=== PATIENT | male | born 1980 | race Caucasian/White ===

== ENCOUNTER 2022-12-07 19:03 | Observation (INO) | payer SELFPAY ==
[2022-12-07 19:04] VITALS: BP 130/98; PULSE 95; RESP 15; TEMP 36.7; O2SAT 99; BMI 33.0
--- NOTE | 2022-12-07 19:10 | XRR_ITS ---
PROCEDURE INFORMATION: Exam: XR Chest Exam date and time: 12/07/2022 7:29 PM Age: 42 years old Clinical indication: Pain; Chest pressure and right-sided; Additional info: Cp TECHNIQUE: Imaging protocol: Radiologic exam of the chest. Views: 1 view. COMPARISON: No relevant prior studies available. FINDINGS: Lungs: Lungs are clear bilaterally. Pleural spaces: No pleural effusion. No pneumothorax. Heart/Mediastinum: The cardiac silhouette and mediastinal contours are unremarkable. Bones/joints: Unremarkable for age. XR/XR chest 1V portable [id number] IMPRESSION: Negative chest radiograph.
--- NOTE | 2022-12-07 19:12 | W.ED.ABDPA2 ---
HPI - Abdominal Pain General: Chief Complaint: Abdominal Pain Stated Complaint: ABD PAIN Time Seen by Provider: 12/07/22 19:07 Source: patient and EMS Mode of arrival: EMS Limitations: no limitations History of Present Illness: 42-year-old male states has been having right upper quadrant pain today. He states that sharp pain that radiates to his back and into his chest. He denies any nausea or vomiting denies any fevers he is currently in pain he states a 5 out of 10. He denies any worsening or improving factors. He does still have his gallbladder. Associated Symptoms: Denies chills, dysuria and fever(s) Review of Systems Const: Denies: fever(s), chills, body aches or change in appetite Eyes: Denies: blurry vision or eye discomfort ENMT: Denies: throat pain or dental pain Card: Denies: chest pain Resp: Denies: dyspnea GI: Reports: abdominal pain : Denies: dysuria Musc: Denies: neck pain or back pain Skin/Breast: Denies: rash Neuro: Denies: headache(s) Psych: Denies: depression Roland/Lymph: Denies: easy bruising All/Imm: Denies: urticaria PFSH ED PFSH: Medical History (Updated 12/07/22 @ 21:55 by Zulema Harris MD) No pertinent past medical history Social History (Updated 12/07/22 @ 19:14 by Zulema Harris MD) Substance/Drug Use: unknown Physical Exam Const: COMMON NORMALS: no acute distress, patient oriented x3 and healthy appearing HENMT: COMMON NORMALS: normocephalic and atraumatic HEAD & SCALP: normocephalic and atraumatic Eye: COMMON NORMALS: Equal, round and reactive pupils present and EOMs intact bilaterally PUPIL: Yes Equal, round and reactive pupils present Neck/C-Spine: COMMON NORMALS: full ROM and supple Chest: COMMONS NORMALS: normal inspection of the chest and normal palpation of entire chest wall Resp: COMMON NORMALS: normal respiratory effort, No retractions, No use of accessory muscles and clear to auscultation bilaterally AUSCULTATION: clear to auscultation bilaterally Cardio: COMMON NORMALS: regular rate, regular rhythm and No murmurs present (Cardio) RATE: regular rate RHYTHM: regular rhythm GI: COMMON NORMALS: Normal to inspection, nondistended, normoactive bowel sounds present, Soft to palpation and no masses PALPATION: Yes Soft to palpation and Yes Tenderness to palpation present (GI) Details: RUQ Extremity: COMMON NORMALS: normal to inspection and full ROM Neuro: COMMON NORMALS: patient oriented x3, moves all extremities and no focal motor deficits Psych: COMMON NORMALS: mental status grossly normal, Normal thought process present and cooperative THOUGHT PROCESS: Normal thought process present Skin: COMMON NORMALS: no rashes or lesions noted and no wounds GENERAL SKIN EXAM: no rashes or lesions noted Course Vital Signs: Vital signs: Vital Signs Temperature 98.1 F 12/07/22 19:04 Pulse Rate 87 12/07/22 21:05 Respiratory Rate 18 12/07/22 19:28 Blood Pressure 123/67 12/07/22 21:05 Pulse Oximetry 100 12/07/22 21:05 Oxygen Delivery Me thod 12/07/22 21:05 MDM - Abdominal Pain Medical Decision Making Patient presents here with right upper quadrant abdominal pain ultrasound is consistent with cholecystitis he has a mildly elevated white count I did speak to surgeon will admit at this time for his cholecystitis. Lab Data 12/07/22 19:05 12/07/22 19:05 Labs/Radiology: Radiology Impressions Chest X-Ray 12/07/22 19:10 IMPRESSION: Negative chest radiograph. Gallbladder Ultrasound 12/07/22 20:36 IMPRESSION: 1. No gallstones or intraluminal gallbladder sludge. There are findings suspicious for cholecystitis on ultrasound. 2. Pancreas not visualized due to overlying bowel gas. 3. Incidental/nonacute findings are listed in the report. Laboratory Results WBC 12.8 10^3/uL (4.0-10.0) H 12/07/22 19:05 RBC 4.70 10^6/uL (4.1-5.3) 12/07/22 19:05 Hgb 13.6 g/dL (11.7-16.6) 12/07/22 19:05 Hct 42.5 % (42.0-52.0) 12/07/22 19:05 MCV 90.4 fl (80-94) 12/07/22 19:05 MCH 28.9 pg (28.0-34.0) 12/07/22 19:05 MCHC 32.0 g/dL (30.0-36.0) 12/07/22 19:05 RDW 13.2 % (12.1-15.1) 12/07/22 19:05 Plt Count 387 10^3/cmm (130-400) 12/07/22 19:05 MPV 9.4 fL (7.4-10.4) 12/07/22 19:05 Neut % (Auto) 76.1 % 12/07/22 19:05 Lymph % (Auto) 13.9 % 12/07/22 19:05 Mayes % (Auto) 6.3 % 12/07/22 19:05 Eos % (Auto) 3.1 % 12/07/22 19:05 Baso % (Auto) 0.4 % 12/07/22 19:05 Neut # (Auto) 9.71 10^3/uL (1.8-7.7) H 12/07/22 19:05 Lymph # (Auto) 1.8 10^3/uL (0.8-4.8) 12/07/22 19:05 Mayes # (Auto) 0.8 10^3/uL (0.2-0.9) 12/07/22 19:05 Eos # (Auto) 0.4 10^3/uL (0.0-0.8) 12/07/22 19:05 Baso # (Auto) 0.1 10^3/uL (0.0-0.1) 12/07/22 19:05 Nucleated RBC % (auto) 0 % 12/07/22 19:05 Nucleated RBCs # 0.0 /100WBC 12/07/22 19:05 Sodium 139 mmol/L (136-145) 12/07/22 19:05 Potassium 4.4 mmol/L (3.5-5.1) 12/07/22 19:05 Chloride 103 mmol/L (98-107) 12/07/22 19:05 Carbon Dioxide 25 mmol/L (22-29) 12/07/22 19:05 Anion Gap 15.4 (5-19) 12/07/22 19:05 BUN 10 mg/dL (6-20) 12/07/22 19:05 Creatinine 0.8 mg/dL (0.7-1.2) 12/07/22 19:05 GFR Calculation 105.0 mL/min (90-130) 12/07/22 19:05 Glucose 94 mg/dL (65-115) 12/07/22 19:05 Calculated Osmolality 287 mOsm/kg (285-295) 12/07/22 19:05 Calcium 9.5 mg/dL (8.5-10.5) 12/07/22 19:05 Total Bilirubin 0.2 mg/dL (0.15-1.2) 12/07/22 19:05 AST 13 U/L (0-40) 12/07/22 19:05 ALT 13 U/L (0-41) 12/07/22 19:05 Alkaline Phosphatase 87 U/L (40-130) 12/07/22 19:05 Troponin T Baseline 6 ng/L (0-15) 12/07/22 19:05 Troponin T 120 Minute 6.00 ng/L (0-15) 12/07/22 20:45 Total Protein 6.5 g/dL (6.6-8.7) L 12/07/22 19:05 Albumin 3.8 g/dL (3.5-5.2) 12/07/22 19:05 Globulin 2.7 g/dL (1.3-4.6) 12/07/22 19:05 Lipase 28 U/L (13-60) 12/07/22 19:05 EKG Data EKG 1: I personally reviewed and interpreted this EKG as follows: EKG interpretation date: 12/07/22 EKG interpretation time: 19:23 Interpretation: nsr hr [address] or t wave abnormalities qrs 85 qtc 395 Discharge Plan Discharge Patient Disposition: Admitted As Inpatient Clinical Impression: Acute cholecystitis Referrals: Sheri Ramirez FNP [Referring] - Coding Level of Care Code ED Certified Hearing Instrument Dispenser for Chg Opal
[2022-12-07 19:22] LABS: Basophils # 0.1 10^3/uL (0.0-0.1); Basophils % 0.4 %; Eosinophils # 0.4 10^3/uL (0.0-0.8); Eosinophils % 3.1 %; Hematocrit 42.5 % (42.0-52.0); Hemoglobin 13.6 g/dL (11.7-16.6); Lymphocytes # 1.8 10^3/uL (0.8-4.8); Lymphocytes % 13.9 %; Mean Corpuscular Hemoglobin 28.9 pg (28.0-34.0); Mean Corpuscular Volume 90.4 fl (80-94); Mean Platelet Volume 9.4 fL (7.4-10.4); Monocytes # 0.8 10^3/uL (0.2-0.9); Monocytes % 6.3 %; Neutrophils # 9.71 10^3/uL (1.8-7.7); Neutrophils % 76.1 %; Nucleated Red Blood Cells % 0 %; Platelet Count 387 10^3/cmm (130-400); Red Cell Distribution Width 13.2 % (12.1-15.1); White Blood Count 12.8 10^3/uL (4.0-10.0)
--- NOTE | 2022-12-07 19:23 | ECG_ITS ---
[facility] Test Date: 2022-12-07 Pat Name: Shayan Castro Department: Room: Gender: Male Manager Of Software: : 1980 Requested By: Zulema Harris Order Number: [id number] Jim MD: Philip Crespo M.D. Measurements Intervals [place] Rate: 90 P: 54 [place]: 120 QRS: 73 QRSD: 85 T: 72 QT: 347 QTc: 425 Interpretive Statements SINUS RHYTHM No previous ECG available for comparison Electronically Signed On 12-08-2022 18:15:33 PROFESSOR OF GERMAN by Philip Crespo M.D. [id number]
[2022-12-07] MEDS: sodium chloride 0.9% 1,000 ML 999 ML IV (19:25)
[2022-12-07] MEDS: ondansetron 2 mg/ML SDV 2 mL 4 MG IVP (19:26)
[2022-12-07 19:28] VITALS: RESP 18; O2SAT 96
[2022-12-07] MEDS: morphine 4 mg/mL SDV 1 mL IVP (19:28)
[2022-12-07 19:38] LABS: Troponin(5th) Baseline 6 ng/L (0-15)
[2022-12-07 19:39] LABS: Alanine Aminotransferase 13 U/L (0-41); Albumin Level 3.8 g/dL (3.5-5.2); Alkaline Phosphatase 87 U/L (40-130); Aspartate Amino Transferase 13 U/L (0-40); Blood Urea Nitrogen 10 mg/dL (6-20); Calcium 9.5 mg/dL (8.5-10.5); Carbon Dioxide 25 mmol/L (22-29); Chloride 103 mmol/L (98-107); Globulin 2.7 g/dL (1.3-4.6); Glucose 94 mg/dL (65-115); Lipase 28 U/L (13-60); Osmolality Calculated 287 mOsm/kg (285-295); Sodium 139 mmol/L (136-145); Total Bilirubin 0.2 mg/dL (0.15-1.2); Total Protein 6.5 g/dL (6.6-8.7)
[2022-12-07 19:44] LABS: Anion Gap 15.4 (5-19); Potassium 4.4 mmol/L (3.5-5.1)
--- NOTE | 2022-12-07 20:36 | USR_ITS ---
PROCEDURE INFORMATION: Exam: US Abdomen, Limited; Right Upper Quadrant Exam date and time: 12/07/2022 8:49 PM Age: 42 years old Clinical indication: Abdominal pain; Acute; Patient HX: Ruq pain today TECHNIQUE: Imaging protocol: Real time ultrasound of the abdomen with image documentation. Limited exam focused on the right upper quadrant. COMPARISON: No relevant prior studies available. FINDINGS: Liver: The liver is unremarkable. Gallbladder: No gallstones or intraluminal gallbladder sludge. There is mild to moderate gallbladder wall thickening and small amount of pericholecystic fluid. There is a positive sonographic Montemayor's sign per report from the mechanical technologist. Biliary ducts: Normal. No stones. No dilation. Pancreas: The pancreas was not visualized due to overlying bowel gas. Right kidney: The right kidney is unremarkable. Aorta: No aortic aneurysm. Inferior vena cava: Visualized IVC is unremarkable. Portal venous: Hepatopetal flow in the portal vein. Intraperitoneal space: No ascites. US/US gall bladder [id number] IMPRESSION: 1. No gallstones or intraluminal gallbladder sludge. There are findings suspicious for cholecystitis on ultrasound. 2. Pancreas not visualized due to overlying bowel gas. 3. Incidental/nonacute findings are listed in the report.
[2022-12-07 21:05] VITALS: BP 123/67; PULSE 87; O2SAT 100
--- NOTE | 2022-12-07 21:12 | ECG_ITS ---
[facility] Test Date: 2022-12-07 Pat Name: Shayan Castro Department: Room: Gender: Male Pegger Dobby Looms: : 1980 Requested By: Zulema Harris Order Number: [id number] Jim MD: Philip Crespo M.D. Measurements Intervals [place] Rate: 80 P: 54 CT: 129 QRS: 74 QRSD: 84 T: 72 QT: 361 QTc: 418 Interpretive Statements SINUS RHYTHM WITH MARKED SINUS ARRHYTHMIA Compared to ECG 12/07/2022 19:23:28 No significant changes Electronically Signed On 12-08-2022 18:20:49 ABSTRACT WRITER by Philip Crespo M.D. [email or web address])[facility] hospital[facility].[email or web address]/store/[id number]
[2022-12-07 22:00] VITALS: BP 122/80; PULSE 78; O2SAT 96
[2022-12-07] MEDS: piperacillin-tazobactam 3.375 GM in sodium chloride 0.9% (plus) 50 ML IV (22:06)
[2022-12-07 22:30] VITALS: BP 124/80; PULSE 70; O2SAT 95
[2022-12-07 22:59] LABS: Troponin 5 2HR Delta 0 ABS# (0-10)
[2022-12-07 23:30] VITALS: BP 134/98; PULSE 75; O2SAT 96
[2022-12-08] VITALS (8 sets, daily range): BP systolic 123–163; BP diastolic 80–94; PULSE 70–95; RESP 16–17; TEMP -17.2–36.7; O2SAT 95–98
--- NOTE | 2022-12-08 00:46 | ECG_ITS ---
[facility] Test Date: 2022-12-08 Pat Name: Shayan Castro Department: Room: 268 Gender: Male Solaris Administrator: : 1980 Requested By: Zulema Harris Order Number: [id number] Jim MD: Philip Crespo M.D. Measurements Intervals [place] Rate: 79 P: 64 WI: 132 QRS: 76 QRSD: 91 T: 75 QT: 393 QTc: 451 Interpretive Statements SINUS RHYTHM WITH OCCASIONAL VENTRICULAR PREMATURE COMPLEXES Compared to ECG 12/07/2022 21:15:37 Ventricular premature complex(es) now present Sinus arrhythmia no longer present Electronically Signed On 12-08-2022 18:21:00 LENS EXAMINER by Philip Crespo M.D. [email or web address] [id number]
[2022-12-08] MEDS: sodium chloride 0.9% 1,000 ML 100 ML IV ×2 (01:09→16:03)
[2022-12-08] MEDS: piperacillin-tazobactam 3.375 GM in sodium chloride 0.9% (plus) 50 ML IV ×3 (05:35→22:53)
--- NOTE | 2022-12-08 10:36 | PC.CHAP ---
Pastoral Care Encounter/Spiritual Assessment Type of Contact [] Declined special events driver visit [] Patient/Family/Request visit [] Outpatient visit [] Follow-up visit [] Physician referral [] Code/Alert [] Routine visit [] Staff referral [] Actively dying [x] Patient sleeping [] Family support [] [] Out of room [] Palliative care [] [] Receiving care in room [] Pre-surgical visit [] Trauma [] Long length of stay [] ICU visit [] Other: Relational/Emotional Strength [] Patient feels connected with others/family/visitors/staff [] Distress [] Loneliness/isolation [] Abandonment Spirituality of Patient [] Person of Yojana [] Attends Jain of their Yojana [] Believes in Prayer [] Reads Bible or Anabaptism materials [] There are Spiritual issues to be addressed Fertilizer Loader Interventions [] Prayer [] Active listening [] Non-anxious presence [] Spiritual/emotional support [] Crisis/trauma care [] Spiritual counseling [] Bereavement support [] Provided bereavement packet [] Provided Bible/devotional materials [] Provided toy/stuffed animal, coloring book to patient or family member [] Provided Communion [] Anointing/United [] Salvation [] Completed spiritual assessment [] Other: Impact on Illness or Injury [] Angry [] Fearful [] Anxious [] Often cries [] Exhaustion [] Unable to work [] Unable to attend restoration [] Unable to walk/stand [] Unable to read [] Unable to drive [] Unable to eat/drink [] Unable to sleep [] Unable to be with family [] Patient intubated [] Other: Summary Time spent with patient
--- NOTE | 2022-12-08 10:43 | PM.HP ---
Providers/Chief Complaint Admitting Physician: Liam Marques DO Chief Complaint: ABD PAIN History of Present Illness Shayan Castro is a 42 year old male presenting to the hospital for 1 day history of abdominal pain. Pain is located in the epigastrium and right upper quadrant and does not radiate. Nothing seems to make the pain better or worse. Denies any nausea or vomiting. Denies any diarrhea or constipation. Ultrasound was equivocal for cholecystitis Review of Systems General: Reports: 10 or more systems reviewed and unremarkable except in HPI and below Medications/Allergies Home Medications Medication Instructions Recorded Confirmed Last Taken Type No Known Home Medications 12/08/22 12/08/22 Unknown History Allergies Allergy/AdvReac Type Severity Reaction Status Date / Time No Known Allergies Allergy Verified 12/08/22 09:28 PFSH Acute PFSH: Medical History No pertinent past medical history Social History Substance/Drug Use: unknown Vitals/I&O/Wt Last Vital Signs Temp 98.0 F 12/09/22 04:00 Pulse 89 12/09/22 04:00 Resp 17 12/09/22 04:00 BP 155/71 12/09/22 04:00 Pulse Ox 97 12/09/22 04:00 O2 Del Method 12/09/22 04:00 12/08/22 12/08/22 12/09/22 14:59 22:59 06:59 Intake Total 1540 / 1540 50 / 1590 50 / 1640 Balance 1540 / 1540 50 / 1590 50 / 1640 Weight last 48 hrs Weight 230 lb Physical Exam Narrative: General : Patient is well developed , no acute distress, oriented x3 Head : Normal cephalic, a-traumatic. Ears : Pinnae and external canal are normal. Hearing is normal. Eyes : PERRLA, Sclera and injection are normal. No conjunctival discharge. Nose : Mucous membranes are without erythema. Throat : buccal mucosa is normal, gums are without significant recession or hypertrophy. Lungs : Equal chest rise bilaterally, no use of accessory muscles, trachea is midline. Cor : Rate and rhythm are normal. Abdomen : Soft, ND, mild right upper quadrant tenderness, negative Montemayor's, no g/r/m Extremities : No edema, no cyanosis or clubbing, dorsalis pedis pulses are present bilaterally, non-tender to palpation of calves. Upper extremities are normal bilaterally. Back : non-tender to palpation, no CVA tenderness. Neuro : CN II - XII intact, Upper and lower extremities have equal and full strength Data 12/07/22 19:05 12/07/22 19:05 A&P Assessment and plan (1) Abdominal pain: Plan Equivocal for cholecystitis Clear liquids Antibiotics Repeat exam in the morning If he improves I will discharge home if not we will proceed with laparoscopic cholecystectomy Attestations Medical Necessity Statement*: Patient requires at least 1 night in the hospital for observation due to abdominal pain and possible acute cholecystitis Coding Level of Care Code Acute Code for [facility] Fwd Diagnoses Abdominal pain R10.9
[2022-12-09] VITALS: BP 133/75; PULSE 82; RESP 17; TEMP 36.8; O2SAT 95
[2022-12-09 04:00] VITALS: BP 155/71; PULSE 89; RESP 17; TEMP 36.7; O2SAT 97
[2022-12-09] MEDS: piperacillin-tazobactam 3.375 GM in sodium chloride 0.9% (plus) 50 ML IV (05:16)
[2022-12-09 08:00] VITALS: BP 142/89; PULSE 82; RESP 16; O2SAT 95
[2022-12-09 08:18] LABS: Basophils # 0.1 10^3/uL (0.0-0.1); Basophils % 0.5 %; Eosinophils # 0.4 10^3/uL (0.0-0.8); Eosinophils % 4.2 %; Hematocrit 41.6 % (42.0-52.0); Hemoglobin 13.3 g/dL (11.7-16.6); Lymphocytes # 2.5 10^3/uL (0.8-4.8); Lymphocytes % 23.9 %; Mean Corpuscular Volume 90.8 fl (80-94); Mean Platelet Volume 9.3 fL (7.4-10.4); Monocytes # 0.6 10^3/uL (0.2-0.9); Monocytes % 5.8 %; Neutrophils # 6.87 10^3/uL (1.8-7.7); Neutrophils % 65.3 %; Nucleated Red Blood Cells % 0 %; Platelet Count 268 10^3/cmm (130-400); Red Blood Count 4.58 10^6/uL (4.1-5.3); Red Cell Distribution Width 13.3 % (12.1-15.1); White Blood Count 10.5 10^3/uL (4.0-10.0)
[2022-12-09 08:39] LABS: Alanine Aminotransferase 10 U/L (0-41); Albumin Level 3.3 g/dL (3.5-5.2); Alkaline Phosphatase 78 U/L (40-130); Aspartate Amino Transferase 11 U/L (0-40); Blood Urea Nitrogen 6 mg/dL (6-20); Calcium 8.9 mg/dL (8.5-10.5); Carbon Dioxide 26 mmol/L (22-29); Chloride 103 mmol/L (98-107); Creatinine Clr Calc Pharmacy 114.0405; Globulin 2.8 g/dL (1.3-4.6); Glomerular Filtration Rate 81.2 mL/min (90-130); Glucose 89 mg/dL (65-115); Osmolality Calculated 281 mOsm/kg (285-295); Sodium 137 mmol/L (136-145); Total Bilirubin 0.4 mg/dL (0.15-1.2); Total Protein 6.1 g/dL (6.6-8.7)
[2022-12-09] MEDS: sodium chloride 0.9% 1,000 ML 100 ML IV (10:41)
[2022-12-09 12:00] VITALS: BP 143/83; PULSE 80; RESP 17; O2SAT 96
--- NOTE | 2022-12-09 13:07 | P.DS_ITS ---
Discharge Providers Date of Admission: 12/07/22 22:29 Date of Discharge: December 09, 2022 Attending Provider at Admission: Liam Marques DO Attending Provider at Discharge: Liam Marques DO Diagnoses at Discharge Discharge Diagnosis (1) Abdominal pain: Status: Acute Reason for Visit Reason for Visit: ABD PAIN Hospital Course Hospital Course This a very pleasant 42-year-old gentleman who presented to the hospital with epigastric and right upper quadrant abdominal pain. Ultrasound was equivocal for a calculus cholecystitis. He improved with antibiotics and was discharged home in good condition Physical Exam Narrative: General : Patient is well developed , no acute distress, oriented x3 Head : Normal cephalic, a-traumatic. Ears : Pinnae and external canal are normal. Hearing is normal. Eyes : PERRLA, Sclera and injection are normal. No conjunctival discharge. Nose : Mucous membranes are without erythema. Throat : buccal mucosa is normal, gums are without significant recession or hypertrophy. Lungs : Equal chest rise bilaterally, no use of accessory muscles, trachea is midline. Cor : Rate and rhythm are normal. Abdomen : Soft, ND, NT, no g/r/m Extremities : No edema, no cyanosis or clubbing, dorsalis pedis pulses are present bilaterally, non-tender to palpation of calves. Upper extremities are normal bilaterally. Back : non-tender to palpation, no CVA tenderness. Neuro : CN II - XII intact, Upper and lower extremities have equal and full strength Discharge Data Studies Completed and Pending Completed Studies During Hospitalization Category Date Time Status XR chest 1V portable [id number] Stat Exams 12/07/22 19:10 Completed US gall bladder [id number] Stat Ultrasound 12/07/22 20:36 Completed Radiology Impressions Chest X-Ray 12/07/22 19:10 IMPRESSION: Negative chest radiograph. Gallbladder Ultrasound 12/07/22 20:36 IMPRESSION: 1. No gallstones or intraluminal gallbladder sludge. There are findings suspicious for cholecystitis on ultrasound. 2. Pancreas not visualized due to overlying bowel gas. 3. Incidental/nonacute findings are listed in the report. Laboratory Results WBC 10.5 10^3/uL (4.0-10.0) H 12/09/22 08:06 RBC 4.58 10^6/uL (4.1-5.3) 12/09/22 08:06 Hgb 13.3 g/dL (11.7-16.6) 12/09/22 08:06 Hct 41.6 % (42.0-52.0) L 12/09/22 08:06 MCV 90.8 fl (80-94) 12/09/22 08:06 MCH 29.0 pg (28.0-34.0) 12/09/22 08:06 MCHC 32.0 g/dL (30.0-36.0) 12/09/22 08:06 RDW 13.3 % (12.1-15.1) 12/09/22 08:06 Plt Count 268 10^3/cmm (130-400) 12/09/22 08:06 MPV 9.3 fL (7.4-10.4) 12/09/22 08:06 Neut % (Auto) 65.3 % 12/09/22 08:06 Lymph % (Auto) 23.9 % 12/09/22 08:06 Esmeralda % (Auto) 5.8 % 12/09/22 08:06 Eos % (Auto) 4.2 % 12/09/22 08:06 Baso % (Auto) 0.5 % 12/09/22 08:06 Neut # (Auto) 6.87 10^3/uL (1.8-7.7) 12/09/22 08:06 Lymph # (Auto) 2.5 10^3/uL (0.8-4.8) 12/09/22 08:06 Esmeralda # (Auto) 0.6 10^3/uL (0.2-0.9) 12/09/22 08:06 Eos # (Auto) 0.4 10^3/uL (0.0-0.8) 12/09/22 08:06 Baso # (Auto) 0.1 10^3/uL (0.0-0.1) 12/09/22 08:06 Nucleated RBC % (auto) 0 % 12/09/22 08:06 Nucleated RBCs # 0.0 /100WBC 12/09/22 08:06 Sodium 137 mmol/L (136-145) 12/09/22 08:06 Potassium 4.0 mmol/L (3.5-5.1) 12/09/22 08:06 Chloride 103 mmol/L (98-107) 12/09/22 08:06 Carbon Dioxide 26 mmol/L (22-29) 12/09/22 08:06 Anion Gap 12.0 (5-19) 12/09/22 08:06 BUN 6 mg/dL (6-20) 12/09/22 08:06 Creatinine 1.0 mg/dL (0.7-1.2) 12/09/22 08:06 GFR Calculation 81.2 mL/min (90-130) L 12/09/22 08:06 Glucose 89 mg/dL (65-115) 12/09/22 08:06 Calculated Osmolality 281 mOsm/kg (285-295) L 12/09/22 08:06 Calcium 8.9 mg/dL (8.5-10.5) 12/09/22 08:06 Total Bilirubin 0.4 mg/dL (0.15-1.2) 12/09/22 08:06 AST 11 U/L (0-40) 12/09/22 08:06 ALT 10 U/L (0-41) 12/09/22 08:06 Alkaline Phosphatase 78 U/L (40-130) 12/09/22 08:06 Troponin T Baseline 6 ng/L (0-15) 12/07/22 19:05 Troponin T 120 Minute 6.00 ng/L (0-15) 12/07/22 20:45 Delta Troponin T 0 ABS# (0-10) 12/07/22 20:45 Total Protein 6.1 g/dL (6.6-8.7) L 12/09/22 08:06 Albumin 3.3 g/dL (3.5-5.2) L 12/09/22 08:06 Globulin 2.8 g/dL (1.3-4.6) 12/09/22 08:06 Lipase 28 U/L (13-60) 12/07/22 19:05 Procedures Performed None Vitals Last Vital Signs Temp 98.0 F 12/09/22 04:00 Pulse 80 12/09/22 12:00 Resp 17 12/09/22 12:00 BP 143/83 12/09/22 12:00 Pulse Ox 96 12/09/22 12:00 O2 Del Method 12/09/22 12:00 Discharge Plan Discharge Patient Disposition: Home Condition: Stable Prescriptions: New amoxicillin-pot clavulanate 875-125 mg tablet 1 tab PO BID Qty: 12 0RF Discharge Orders: Discharge Order (Routine); Ordered 12/09/22 Ordered By: Liam Marques Referrals: Lu Ochoa [Other] - 12/14/22 2:30 pm (If you would like to participate w/ sliding scale payment option will need proof of income if you have any. ) Discharge Diet: Advance as tolerated Discharge Activity: Resume usual activity Patient Instructions: Opioid Safety Discharge Attestations Time Spent in Discharge Care*: less than 30 min Quality Metrics Clinical Quality Measures [ No reported AMI, CVA or VTE this stay] Coding Level of Care Code Acute Code for Chg Fwd Diagnoses Abdominal pain R10.9
[2022-12-09 14:00] VITALS: PULSE 85
[2022-12-09 14:37] VITALS: BP 124/76; PULSE 85; RESP 18; TEMP 36.6; O2SAT 98
--- NOTE | 2022-12-09 14:52 | PC.NURSE ---
Discharge education reviewed with patient. Patient getting dressed. Ride should be here shortly.
== END 2022-12-09 15:52 | disposition home or self-care (01) ==
LOC: ER 22:01 → MEDSURG 22:29
PROVIDERS: Admitting Provider Surgery; Emergency Provider Emergency Medicine; Visit Provider Surgery
DX: K80.10 Calculus of gallbladder with chronic cholecystitis without obstruction (principal)
CPT/HCPCS: 36415; 71045; 76705; 80053; 83690; 84484; 85025; 93005; 96365; 96366; 96375; 99285; G0378; J2270; J2405; J2543; J7030